=== PATIENT | female | born 2000 | race African-American/Black ===

== ENCOUNTER 2020-09-22 13:35 | Emergency (ER) | payer OTHER ==
[2020-09-22 13:49] VITALS: BMI 18.3
[2020-09-22] MEDS ORDERED: ONDANSETRON 4 MG/2 ML VIAL IVPUSH ONE (14:08)
[2020-09-22] MEDS ORDERED: ACETAMINOPHEN 1000 MG/100 ML VIAL (NON FORMULARY) IVPB ONE (14:08)
[2020-09-22] MEDS ORDERED: LACTATED RINGERS SOLUTION 1000 ML INFUS.BAG IV ONE (14:08)
[2020-09-22] MEDS ORDERED: ACETAMINOPHEN INJECTION 100 ML IVPB ONE (14:16)
[2020-09-22] MEDS ORDERED: ONDANSETRON 4 MG/2 ML VIAL ONE (14:16)
[2020-09-22 15:08] LABS: EOS % 0.3 % (0-4.5); HEMATOCRIT 43.3 % (32.4-45.2); HEMOGLOBIN 14.3 GM/dL (10.7-15.3); LYMPH % 19.8 % (8-40); MCH 29.4 pg (25.7-33.7); MCHC 33.1 g/dl (32.0-36.0); MEAN CELL VOLUME 89.1 fl (80-96); MEAN PLT VOLUME 7.7 fl (7.5-11.1); MONO % 13.2 % (3.8-10.2); NEUT % 65.7 % (42.8-82.8); PLATELET COUNT 369 10^3/uL (134-434); RBC 4.86 M/mm3 (3.60-5.2); RDW 13.4 % (11.6-15.6)
[2020-09-22 15:20] LABS: CALCIUM 9.2 mg/dL (8.5-10.1)
[2020-09-22 15:23] LABS: CREATININE 0.8 mg/dL (0.55-1.3)
[2020-09-22 15:25] LABS: BILIRUBIN,TOTAL 0.4 mg/dL (0.2-1); TOT PROT 8.8 g/dl (6.4-8.2)
[2020-09-22 16:37] VITALS: BP 128/74; PULSE 68
== END 2020-09-22 16:00 | disposition home or self-care (01) ==
LOC: JER 13:35
PROC: 3E033NZ Introduction of Analgesics, Hypnotics, Sedatives into Peripheral Vein, Percutaneous Approach (ICD-10-PCS; principal; 2020-09-22)
PROC: 3E033GC Introduction of Other Therapeutic Substance into Peripheral Vein, Percutaneous Approach (ICD-10-PCS; 2020-09-22)
DX: J06.9 Acute upper respiratory infection, unspecified (principal)
CPT/HCPCS: 36415; 80053; 83690; 84703; 85025; 87804; 99284-25; C9803; J0131; U0003; U0005

== ENCOUNTER 2020-11-03 16:39 | Emergency (ER) | payer OTHER ==
[2020-11-03 16:57] VITALS: BP 106/65; PULSE 71; BMI 18.1
[2020-11-03] MEDS ORDERED: SODIUM CHLORIDE 1,000 ML IV STA (17:19)
[2020-11-03] MEDS ORDERED: ACETAMINOPHEN 1000 MG/100 ML VIAL IVPB ONE (17:19)
[2020-11-03] MEDS ORDERED: METOCLOPRAMIDE HCL INJECTION 10 MG/2 ML VIAL IVPUSH ONE (17:19)
[2020-11-03] MEDS ORDERED: METOCLOPRAMIDE HCL INJECTION 10 MG/2 ML VIAL ONE (17:52)
[2020-11-03] MEDS ORDERED: ACETAMINOPHEN INJECTION 100 ML IVPB ONE (17:52)
== END 2020-11-03 18:55 | disposition home or self-care (01) ==
LOC: JER 16:39
PROC: 3E033NZ Introduction of Analgesics, Hypnotics, Sedatives into Peripheral Vein, Percutaneous Approach (ICD-10-PCS; principal; 2020-11-03)
PROC: 3E033GC Introduction of Other Therapeutic Substance into Peripheral Vein, Percutaneous Approach (ICD-10-PCS; 2020-11-03)
PROC: 3E033GC Introduction of Other Therapeutic Substance into Peripheral Vein, Percutaneous Approach (ICD-10-PCS; 2020-11-03)
PROC: 3E0337Z Introduction of Electrolytic and Water Balance Substance into Peripheral Vein, Percutaneous Approach (ICD-10-PCS; 2020-11-03)
DX: G43.909 Migraine, unspecified, not intractable, without status migrainosus (principal)
CPT/HCPCS: 96361; 96374; 96375; 99284-25; J0131

== ENCOUNTER 2020-12-12 23:27 | Emergency (ER) | payer OTHER ==
[2020-12-12 23:37] VITALS: TEMP 98.4
[2020-12-13] MEDS ORDERED: METOCLOPRAMIDE HCL INJECTION 10 MG/2 ML VIAL IVPB ONE (00:08)
[2020-12-13] MEDS ORDERED: SODIUM CHLORIDE 1,000 ML IV STA (00:08)
[2020-12-13] MEDS ORDERED: ACETAMINOPHEN 1000 MG/100 ML VIAL (NON FORMULARY) IVPB ONE (00:08)
[2020-12-13] MEDS ORDERED: METOCLOPRAMIDE HCL INJECTION 10 MG/2 ML VIAL ONE (00:16)
[2020-12-13] MEDS ORDERED: ACETAMINOPHEN INJECTION 100 ML IVPB ONE (00:42)
[2020-12-13 01:55] VITALS: BP 103/62; PULSE 73
== END 2020-12-13 01:56 | disposition home or self-care (01) ==
LOC: JER 23:27
PROC: 3E0333Z Introduction of Anti-inflammatory into Peripheral Vein, Percutaneous Approach (ICD-10-PCS; principal; 2020-12-12)
PROC: 3E033GC Introduction of Other Therapeutic Substance into Peripheral Vein, Percutaneous Approach (ICD-10-PCS; 2020-12-12)
PROC: 3E0337Z Introduction of Electrolytic and Water Balance Substance into Peripheral Vein, Percutaneous Approach (ICD-10-PCS; 2020-12-12)
DX: G43.909 Migraine, unspecified, not intractable, without status migrainosus (principal)
CPT/HCPCS: 84703; 99284-25; J0131